=== PATIENT | female | born 1995 | race Caucasian/White ===

== ENCOUNTER → 2020-07-16 | Outpatient (CLI) | payer OTHER ==
[~2020-07-16] MED LIST: IBUPROFEN600 MG PO; KEFLEX CAP 500500 MG PO; ZOFRAN ODT 4 MG4 MG SL
== END ==
LOC: RAD 08:00
DX: M54.9 Dorsalgia, unspecified (principal)
CPT/HCPCS: 72040; 72072

== ENCOUNTER → 2021-08-01 | Outpatient (CLI) | payer OTHER | LOC: KOH-I 08:25 | DX: R10.11 Right upper quadrant pain (principal); K80.20 Calculus of gallbladder without cholecystitis without obstruction | CPT/HCPCS: 76705 ==

== ENCOUNTER → 2021-08-13 | Outpatient (CLI) | payer OTHER | LOC: KOH-I 14:35 | DX: N28.9 Disorder of kidney and ureter, unspecified (principal) | CPT/HCPCS: 76775 ==

== ENCOUNTER → 2021-12-06 | Outpatient (CLI) | payer OTHER ==
[2021-12-06 13:04] LABS: HEMOGLOBIN 12.7 gm/dl (12.3-15.3); RED BLOOD COUNT 4.14 M/UL (4.00-5.10); WHITE BLOOD COUNT 7.4 K/UL (4.5-11.0)
[2021-12-06 13:28] LABS: BUN/CREATININE RATIO 11 (0-10)
== END ==
LOC: LAB 12:10
PROVIDERS: Nurse Practitioner Family
DX: R55 Syncope and collapse (principal)
CPT/HCPCS: 36415; 80048; 82728; 83036; 83540; 83550; 85025

== ENCOUNTER → 2021-12-30 | Outpatient (CLI) | payer OTHER | LOC: EMI 12-23 09:00 | DX: Z01.812 Encounter for preprocedural laboratory examination (principal); R55 Syncope and collapse | CPT/HCPCS: 36415; 84702 ==

== ENCOUNTER → 2022-01-01 | Outpatient (CLI) | payer OTHER | LOC: EMI 09:50 | DX: R55 Syncope and collapse (principal); R90.89 Other abnormal findings on diagnostic imaging of central nervous system | CPT/HCPCS: 70553; A9577 ==